=== PATIENT | female | born 2000 | race African-American/Black ===

== ENCOUNTER 2019-09-05 18:54 | Emergency (ER) | payer MEDICAID ==
[~2019-09-05] VITALS: Ht 172.7 cm; Wt 75.0 kg
[~2019-09-05 18:54] MED LIST: BACTRIM; CEPHALEXIN; PAIN PILL
[2019-09-05] MEDS ORDERED: AZITHROMYCIN 500 MG TABLET PO ONE (19:30)
[2019-09-05] MEDS ORDERED: LIDOCAINE HCL 1% 20ML VIAL (Pyxis) INJ INFIL ONE (19:30)
[2019-09-05] MEDS ORDERED: CEFTRIAXONE SODIUM 250 MG/VIAL IM ONE (19:30)
[2019-09-05 21:33] VITALS: BP 119/74
[2019-09-08 05:08] LABS: NEISSERIA GONORRHOEAE NAA Positive (Negative)
== END 2019-09-05 21:34 | disposition home or self-care (01) ==
LOC: ER 18:54
DX: Z20.2 Contact with and (suspected) exposure to infections with a predominantly sexual mode of transmission (principal)
CPT/HCPCS: 86703; 87210; 87491; 87591; 96372; 99283; J0696; J3490

== ENCOUNTER 2019-10-24 10:49 | Emergency (ER) | payer MEDICAID ==
[~2019-10-24] VITALS: Ht 165.1 cm; Wt 72.0 kg
[2019-10-24] MEDS ORDERED: ACETAMINOPHEN 325MG TABLET PO ONE (11:45)
[2019-10-24 11:52] LABS: CLARITY URINE CLEAR (CLEAR); COLOR URINE YELLOW (YELLOW); KETONES URINE NEGATIVE (NEGATIVE); LEUKOCYTE ESTERASE URINE 2+ (NEGATIVE); NITRITE URINE NEGATIVE (NEGATIVE); OCCULT BLOOD URINE NEGATIVE (NEGATIVE); PH URINE 7.5 (4.5-8.0); PROTEIN URINE NEGATIVE (NEGATIVE); SPECIFIC GRAVITY URINE 1.019 (1.005-1.030); UROBILINOGEN URINE 0.2 E.U./dL (0.2-1.0)
[2019-10-24] MEDS ORDERED: AZITHROMYCIN 500 MG TABLET PO ONE (12:15)
[2019-10-24] MEDS ORDERED: LIDOCAINE HCL 1% 20ML VIAL (Pyxis) INJ INFIL ONE (12:15)
[2019-10-24] MEDS ORDERED: CEFTRIAXONE SODIUM 250 MG/VIAL IM ONE (12:15)
[2019-10-24 12:21] LABS: BASOPHILS % 0.2 % (0.0-2.0); EOSINOPHILS % 2.2 % (0.0-5.0); HEMATOCRIT. 35.7 % (36.0-48.0); HEMOGLOBIN. 11.6 g/dL (12.0-16.0); LYMPHOCYTES % 41.7 % (20.0-50.0); MEAN CORPUSCULAR HEMOGLOBIN 25.7 pg (28.0-32.0); MEAN PLATELET VOLUME 8.4 fl (7.4-10.4); NEUTROPHILS % 47.9 % (40.0-76.0); PLATELET 252 x1000/uL (130-400); RED BLOOD CELL COUNT 4.51 mill/uL (4.2-5.4); RED CELL DISTRIBUTION WIDTH 17.7 % (11.6-14.6)
[2019-10-24 12:24] LABS: CHLORIDE 108 mEq/L (98-107)
[2019-10-24 13:00] VITALS: BP 118/81
[2019-10-26 04:11] LABS: NEISSERIA GONORRHOEAE NAA Negative (Negative)
== END 2019-10-24 13:59 | disposition home or self-care (01) ==
LOC: ER 10:49
DX: N39.0 Urinary tract infection, site not specified (principal); R03.0 Elevated blood-pressure reading, without diagnosis of hypertension
CPT/HCPCS: 36415; 80053; 81003; 81025; 83690; 85025; 87210; 87491; 87591; 96372; 99283; J0696; J3490

== ENCOUNTER 2020-04-13 22:10 | Emergency (ER) | payer MEDICAID ==
[~2020-04-13] VITALS: Ht 165.1 cm; Wt 70.0 kg
[2020-04-13 22:18] VITALS: BP 116/69
[2020-04-13] MEDS ORDERED: IBUPROFEN 600MG TABLET PO ONE (22:30)
[2020-04-13 23:56] LABS: CLARITY URINE CLEAR (CLEAR); COLOR URINE YELLOW (YELLOW); KETONES URINE NEGATIVE (NEGATIVE); LEUKOCYTE ESTERASE URINE TRACE (NEGATIVE); NITRITE URINE NEGATIVE (NEGATIVE); OCCULT BLOOD URINE NEGATIVE (NEGATIVE); PH URINE 5.5 (4.5-8.0); PROTEIN URINE NEGATIVE (NEGATIVE); SPECIFIC GRAVITY URINE 1.027 (1.005-1.030); UROBILINOGEN URINE 0.2 E.U./dL (0.2-1.0)
== END 2020-04-14 01:45 | disposition home or self-care (01) ==
LOC: ER 22:10
DX: J06.9 Acute upper respiratory infection, unspecified (principal)
CPT/HCPCS: 81003; 81025; 87070; 87430; 99283

== ENCOUNTER 2020-05-09 13:55 | Emergency (ER) | payer MEDICAID ==
[~2020-05-09] VITALS: Ht 175.3 cm; Wt 723.0 kg
[2020-05-09 13:59] VITALS: BP 111/85
[2020-05-09] MEDS ORDERED: ACETAMINOPHEN 325MG TABLET PO STA (14:28)
[2020-05-09 14:49] LABS: CLARITY URINE TURBID (CLEAR); COLOR URINE RED (YELLOW); KETONES URINE NEGATIVE (NEGATIVE); LEUKOCYTE ESTERASE URINE 3+ (NEGATIVE); NITRITE URINE NEGATIVE (NEGATIVE); OCCULT BLOOD URINE 3+ (NEGATIVE); PROTEIN URINE 2+ (NEGATIVE); SPECIFIC GRAVITY URINE 1.022 (1.005-1.030)
== END 2020-05-09 16:47 | disposition home or self-care (01) ==
LOC: ER 13:55
DX: N39.0 Urinary tract infection, site not specified (principal); B37.3 Candidiasis of vulva and vagina
CPT/HCPCS: 81003; 81025; 87077; 87086; 87186; 93005; 99284; Z7610

== ENCOUNTER 2022-04-19 14:21 | Emergency (ER) | payer MEDICAID ==
[~2022-04-19] VITALS: Ht 165.1 cm; Wt 72.0 kg
[2022-04-19 14:22] VITALS: BP 123/73
[2022-04-19] MEDS ORDERED: IBUPROFEN 600MG TABLET PO ONE (16:30)
[2022-04-19] MEDS ORDERED: IBUP-2029 MT (18:37)
== END 2022-04-19 18:46 | disposition home or self-care (01) ==
LOC: ER 14:28
DX: J11.1 Influenza due to unidentified influenza virus with other respiratory manifestations (principal); Z20.822 Contact with and (suspected) exposure to COVID-19
CPT/HCPCS: 71045; 87426; 87804; 99284; C9803